=== PATIENT | male | born 1950 | race Hispanic/Latino ===

== ENCOUNTER 2016-08-29 20:21 | Emergency (ER) | payer MEDICARE ==
[~2016-08-29] VITALS: Ht 162.6 cm; Wt 68.0 kg
[~2016-08-29 20:21] MED LIST: BACTRIM DS1 TAB OR; DOXYCYC MONO100 M1 OR; METFORMIN500 MG PO; NO MEDS; PRAVASTATIN40 MG PO; ULTRAM50 M1 PO
[2016-08-29] MEDS ORDERED: LIPITOR10 M1 PO (20:31)
[2016-08-29] MEDS ORDERED: LISINOPRIL20 MG PO (20:31)
[2016-08-29] MEDS ORDERED: LEVEMIR1000 UNITS IJ (20:32)
[2016-08-29 21:40] LABS: HEMATOCRIT 48.6 % (39.0-50.0); IMMATURE GRANULOCYTES 1.7 % (0.0-1.0); MEAN CORPUSCULAR HGB 33.9 pG CALC (26.0-32.0); NEUT# 5.78 thou/uL (1.82-7.42); RED BLOOD COUNT 5.01 mill/uL (4.70-6.10); RED CELL DISTRI WIDTH 13.5 % (11.5-15.5)
[2016-08-29 21:58] LABS: ALBUMIN 4.1 g/dL (3.2-5.0); ALKALINE PHOSPHATASE 66 u/l (38-126); AMYLASE 196 u/l (30-110); ANION GAP 18 (6-22 (CALC)); BILIRUBIN, TOTAL 0.6 mg/dL (0.0-1.4); BUN 20 mg/dL (8-23); BUN/CREATININE RATIO 21 (12-20 (CALC)); CALCIUM 8.7 mg/dL (8.4-10.2); CARBON DIOXIDE 18 mmol/l (22-30); CHLORIDE 104 mmol/l (95-108); CREATININE 0.9 mg/dL (0.7-1.3); GFR > 60 ML/MIN (>=60 (CALC)); GFR FOR AFR.AMER. > 60 ML/MIN (>=60 (CALC)); GLUCOSE 158 mg/dL (82-115); LIPASE 448 u/l (23-300); POTASSIUM 4.4 mmol/l (3.5-5.1); SGOT/AST 38 u/l (19-48); SGPT/ALT 40 u/l (11-66); SODIUM 136 mmol/l (137-146); TOTAL PROTEIN 6.5 g/dL (6.3-8.2)
[2016-08-30 00:10] VITALS: BP 127/68
--- NOTE | 2016-09-04 08:12 | NUR ---
PHARMACY MEDICATION FOLLOW-UP Patient was seen in ED on 08/30/16 Cultures were reviewed from: Blood Patient was discharged with Rx for:[facility] C&S report came back with No Growth PLAN: C&S report called to physician Physician that was contacted: Contact #: Recommended: No Change Per Physician; Called the patient to Comment: DIVERTICULITIS
== END 2016-08-30 00:10 | disposition short-term general hospital (02) ==
LOC: ED 20:21
PROVIDERS: Emergency Medicine
DX: K57.20 Diverticulitis of large intestine with perforation and abscess without bleeding (principal); R10.32 Left lower quadrant pain; R10.31 Right lower quadrant pain; F17.210 Nicotine dependence, cigarettes, uncomplicated; I10 Essential (primary) hypertension

== ENCOUNTER 2017-03-04 18:49 | Observation (INO) | payer MEDICARE ==
[~2017-03-04] VITALS: Ht 162.6 cm; Wt 72.0 kg
[~2017-03-04 18:49] MED LIST changes: +LEVEMIR FL100 UNIT/M SC; +LEVEMIR1000 UNITS IJ; +LIPITOR10 M1 PO; +LISINOPRIL20 MG PO
[2017-03-04] MEDS ORDERED: PROAIR RES108 MCG/AC IN (19:39)
[2017-03-04] MEDS ORDERED: ANORO ELLIPTA 61 AER IN (19:40)
[2017-03-04 20:07] LABS: HEMOGLOBIN 15.2 g/dl (14.0-18.0); IMMATURE GRANULOCYTES 0.6 % (0.0-1.0); MEAN CELL VOLUME 86.1 fL CALC (80.0-100.0); MEAN CORPUSCULAR HGB 31.9 pG CALC (26.0-32.0); MEAN CORPUSCULAR HGB CONC 37.1 g/L CALC (32.0-36.0); NEUT# 6.35 thou/uL (1.82-7.42); RED BLOOD COUNT 4.76 mill/uL (4.70-6.10); RED CELL DISTRI WIDTH 12.4 % (11.5-15.5)
[2017-03-04 20:12] LABS: URINE BILIRUBIN - DIPSTICK NEGATIVE (NEGATIVE); URINE BLOOD DIPSTICK TRACE-INTACT (NEGATIVE); URINE CLARITY CLEAR; URINE COLOR YELLOW; URINE GLUCOSE - DIPSTICK >=1000 mg/dL (NEGATIVE); URINE KETONE NEGATIVE (NEGATIVE); URINE LEUK ESTERASE NEGATIVE (NEGATIVE); URINE NITRITE - DIPSTICK NEGATIVE (Negative); URINE PROTEIN - DIPSTICK NEGATIVE (NEG-TRACE); URINE UROBILINOGEN - DIPSTICK 0.2 E.U./dL (0.2)
[2017-03-04 20:15] LABS: ALBUMIN 4.4 g/dL (3.2-5.0); ALKALINE PHOSPHATASE 113 u/l (38-126); ANION GAP 18 (6-22 (CALC)); BILIRUBIN, TOTAL 1.2 mg/dL (0.0-1.4); BUN 21 mg/dL (8-23); BUN/CREATININE RATIO 16 (12-20 (CALC)); CALCIUM 9.2 mg/dL (8.4-10.2); CARBON DIOXIDE 20 mmol/l (22-30); CHLORIDE 95 mmol/l (95-108); CREATININE 1.3 mg/dL (0.7-1.3); GFR 55 ML/MIN (>=60 (CALC)); GFR FOR AFR.AMER. > 60 ML/MIN (>=60 (CALC)); POTASSIUM 4.9 mmol/l (3.5-5.1); SGOT/AST 31 u/l (19-48); SGPT/ALT 62 u/l (11-66); SODIUM 128 mmol/l (137-146); TOTAL PROTEIN 7.1 g/dL (6.3-8.2)
[2017-03-04 20:27] LABS: MYOGLOBIN 103 ng/mL (0 - 121)
[2017-03-04 20:30] LABS: GLUCOSE 660 mg/dL (82-115)
[2017-03-04 22:00] VITALS: BP 136/73
[2017-03-05 04:22] VITALS: BP 118/66
[2017-03-05 08:35] VITALS: BP 155/56
[2017-03-05 09:19] VITALS: BP 157/62
[2017-03-05] MEDS ORDERED: GLUCOTROL EXTE2.5 M1 PO (11:57)
[2017-03-05 13:12] LABS: BUN 16 mg/dL (8-23); BUN/CREATININE RATIO 19 (12-20 (CALC)); CALCIUM 8.9 mg/dL (8.4-10.2); CARBON DIOXIDE 22 mmol/l (22-30); CREATININE 0.9 mg/dL (0.7-1.3); GFR > 60 ML/MIN (>=60 (CALC)); GFR FOR AFR.AMER. > 60 ML/MIN (>=60 (CALC)); GLUCOSE 255 mg/dL (82-115); POTASSIUM 4.2 mmol/l (3.5-5.1); SODIUM 137 mmol/l (137-146)
[2017-03-05 13:33] LABS: ANION GAP 12 (6-22 (CALC)); CHLORIDE 107 mmol/l (95-108)
== END 2017-03-05 13:05 | disposition home or self-care (01) ==
LOC: ED 18:49 → ED-I 20:00 → ED 20:59 → MS2 21:00
PROVIDERS: Emergency Medicine; ADMIT Internal Medicine; ATTEND Internal Medicine
DX: E11.65 Type 2 diabetes mellitus with hyperglycemia (principal); I10 Essential (primary) hypertension; E78.5 Hyperlipidemia, unspecified; Z79.4 Long term (current) use of insulin; Z87.891 Personal history of nicotine dependence

== ENCOUNTER 2017-04-06 06:47 | Day surgery (SDC) | payer MEDICARE ==
[~2017-04-06] VITALS: Ht 162.6 cm; Wt 72.6 kg
[~2017-04-06 06:47] MED LIST changes: +ANORO ELLIPTA 61 AER IN; +GLUCOTROL EXTE2.5 M1 PO; +PROAIR RES108 MCG/AC IN
[2017-04-06 10:54] VITALS: BP 126/59
== END 2017-04-06 10:25 | disposition home or self-care (01) ==
LOC: ENDO 06:47
PROVIDERS: ATTEND Surgery
PROC: 0DJD8ZZ Inspection of Lower Intestinal Tract, Via Natural or Artificial Opening Endoscopic (ICD-10-PCS; principal; 2017-04-06)
PROC: 0DJD8ZZ Inspection of Lower Intestinal Tract, Via Natural or Artificial Opening Endoscopic (ICD-10-PCS; 2017-04-06)
DX: K57.30 Diverticulosis of large intestine without perforation or abscess without bleeding (principal); K62.89 Other specified diseases of anus and rectum; Z93.3 Colostomy status

== ENCOUNTER 2018-07-14 09:15 | Emergency (ER) | payer MEDICARE ==
[~2018-07-14] VITALS: Ht 162.6 cm; Wt 65.0 kg
[2018-07-14 10:40] LABS: HEMATOCRIT 42.7 % (39.0-50.0); HEMOGLOBIN 15.1 g/dl (14.0-18.0); IMMATURE GRANULOCYTES 0.3 % (0.0-5.0); MEAN CORPUSCULAR HGB 32.2 pG CALC (26.0-32.0); MEAN CORPUSCULAR HGB CONC 35.4 g/L CALC (32.0-36.0); NEUT# 3.62 thou/uL (1.82-7.42); RED BLOOD COUNT 4.69 mill/uL (4.70-6.10); RED CELL DISTRI WIDTH 12.7 % (11.5-15.5)
[2018-07-14 10:48] LABS: ALKALINE PHOSPHATASE 63 u/l (38-126); ANION GAP 13 (6-22 (CALC)); BILIRUBIN, TOTAL 0.7 mg/dL (0.0-1.4); BUN 21 mg/dL (8-23); BUN/CREATININE RATIO 25 (12-20 (CALC)); CARBON DIOXIDE 23 mmol/l (22-30); CHLORIDE 103 mmol/l (95-108); CREATININE 0.8 mg/dL (0.7-1.3); GFR > 60 ML/MIN (>=60 (CALC)); GFR FOR AFR.AMER. > 60 ML/MIN (>=60 (CALC)); SGOT/AST 38 u/l (19-48); SODIUM 135 mmol/l (137-146); TOTAL PROTEIN 6.3 g/dL (6.3-8.2)
[2018-07-14 10:59] LABS: MYOGLOBIN 180 ng/mL (0 - 121)
[2018-07-14] MEDS ORDERED: CEPHALEXIN500 M1 PO (11:16)
[2018-07-14] MEDS ORDERED: ROBITUSSIN AC10 ML PO (11:16)
[2018-07-14 11:19] VITALS: BP 122/58
== END 2018-07-14 11:28 | disposition home or self-care (01) ==
LOC: ED 09:15
PROVIDERS: Emergency Medicine
DX: R07.89 Other chest pain (principal); J06.9 Acute upper respiratory infection, unspecified; E11.9 Type 2 diabetes mellitus without complications; E78.5 Hyperlipidemia, unspecified; I10 Essential (primary) hypertension

== ENCOUNTER 2020-08-14 16:48 | Inpatient (IN) | payer MEDICARE ==
[~2020-08-14] VITALS: Ht 162.6 cm; Wt 77.0 kg
[~2020-08-14 16:48] MED LIST changes: +CEPHALEXIN500 M1 PO; +ROBITUSSIN AC10 ML PO
--- NOTE | 2020-08-14 17:12 | NUR ---
PT TO ROOM W/STEADY GAIT.
--- NOTE | 2020-08-14 17:18 | NUR ---
RECIEVED FOR CARE,POC DISCUSSED. CALL TAVERAS IN REACH.
--- NOTE | 2020-08-14 18:00 | NUR ---
CLEAN ABDOMINAL PAD DRESSING TO COVER WOUND ON LEFT BUTTOCKS. PATIENT TOLERATE WELL.
[2020-08-14 18:01] LABS: HEMATOCRIT 48.5 % (39.0-50.0); HEMOGLOBIN 17.2 g/dl (14.0-18.0); IMMATURE GRANULOCYTES 0.5 % (0.0-5.0); MEAN CELL VOLUME 91.9 fL CALC (80.0-100.0); MEAN CORPUSCULAR HGB 32.6 pG CALC (26.0-32.0); MEAN CORPUSCULAR HGB CONC 35.5 g/dL CAL (32.0-36.0); NEUT# 5.28 thou/uL (1.82-7.42); RED BLOOD COUNT 5.28 mill/uL (4.70-6.10); RED CELL DISTRI WIDTH 12.2 % (11.5-15.5)
[2020-08-14] MEDS ORDERED: TRESIBA FL100 UNIT/M SC (18:13)
[2020-08-14 18:18] LABS: ALBUMIN 4.4 g/dL (3.2-5.0); ALKALINE PHOSPHATASE 87 u/l (38-126); ANION GAP 13 (6-22 (CALC)); BILIRUBIN, TOTAL 1.1 mg/dL (0.0-1.4); BUN 24 mg/dL (8-23); BUN/CREATININE RATIO 27 (12-20 (CALC)); CARBON DIOXIDE 24 mmol/l (22-30); CHLORIDE 99 mmol/l (95-108); CREATININE 0.9 mg/dL (0.7-1.3); GFR > 60 ML/MIN (>=60 (CALC)); GFR FOR AFR.AMER. > 60 ML/MIN (>=60 (CALC)); POTASSIUM 4.9 mmol/l (3.5-5.1); SGOT/AST 46 u/l (19-48); TOTAL PROTEIN 7.1 g/dL (6.3-8.2)
[2020-08-14 18:21] LABS: SODIUM 131 mmol/l (137-146)
--- NOTE | 2020-08-14 19:06 | NUR ---
IN ROOM INTRODUCED SELF TO PT. IVD FLUIDS AND ABT. INFUSING WELL, NO REDNESS OR EDEMA NOTED.
--- NOTE | 2020-08-14 19:33 | NUR ---
Admission Note Report Given to: YNES FRAZIER Transported by: Wheelchair X Stretcher Transported with: X Nurse Transporter X Patent IV O2 Typewriter Operator Automatic Location: ICU X MS2
--- NOTE | 2020-08-14 19:34 | NUR ---
TAKEN TO MS FLOOR VIA STRETCHER. NO C/O.
--- NOTE | 2020-08-14 19:45 | NUR ---
PT RECEIVED FROM ED TO ROOM 278. ARRIVES VIA STRETCHER ACCOMPANIED BY RN. PT AMBULATORY TO BED. GAIT UNSTEADY. PT DENIES PAIN AT THIS TIME. ORIENTED TO UNIT, ROOM, CALL TAVERAS, LIGHTS, TV. ICE WATER PROVIDED. CALL TAVERAS WITHIN REACH. AGREES TO CALL PRN.
--- NOTE | 2020-08-14 20:00 | NUR ---
PHYSICAL ASSESMENT COMPLETE. PT CURRENTLY DENIES PAIN OR DISCOMFORT. SCHEDULED MEDICATIONS AND PRN MEDICATION ADMINISTERED, SEE E-MAR. PT DENIES ANY NEEDS AT THIS TIME. PLAN OF CARE REVIEWED, PT DENIES QUESTIONS, VERBALIZES UNDERSTANDING. WOUND/ABSCESS TO LEFT BUTTOCKS. INSPECTED AND PICTURE TAKE AND PLACED IN PTS CHART. ITEMS WITHIN REACH, BED LOCKED IN LOW POSITION W/ BEDRAILS UP X2. CALL TAVERAS WITHIN REACH, AGREES TO CALL PRN.
[2020-08-14 20:02] VITALS: BP 157/82
[2020-08-15] VITALS (11 sets, daily range): BP systolic 124–156; BP diastolic 58–82
--- NOTE | 2020-08-15 00:07 | NUR ---
PT LAYING IN BED WITH EYES CLOSED, APPEARS TO BE SLEEPING, APPEARS COMFORTABLE AND IN NO DISTRESS. RESPIRATIONS REGULAR AND UNLABORED. ITEMS REMAIN WITHIN REACH, CALL TAVERAS REMAINS WITHIN REACH. BED REMAINS LOCKED AND IN LOW POSITION WITH BEDRAILS UP X2. WILL CONTINUE TO MONITOR.
--- NOTE | 2020-08-15 04:13 | NUR ---
PT RESTING IN BED, NO SIGNS OF DISTRESS NOTED, RESP EVEN AND UNLABORED. PT VOICES NO NEEDS OR COMPLAINTS AT THIS TIME. CALL LIGHT IN REACH, CONTINUE TO MONITOR.
[2020-08-15 05:34] LABS: HEMATOCRIT 48.2 % (39.0-50.0); HEMOGLOBIN 16.7 g/dl (14.0-18.0); MEAN CELL VOLUME 92.3 fL CALC (80.0-100.0); MEAN CORPUSCULAR HGB CONC 34.6 g/dL CAL (32.0-36.0); RED BLOOD COUNT 5.22 mill/uL (4.70-6.10); RED CELL DISTRI WIDTH 12.2 % (11.5-15.5)
[2020-08-15 05:59] LABS: BUN 16 mg/dL (8-23); BUN/CREATININE RATIO 21 (12-20 (CALC)); CARBON DIOXIDE 24 mmol/l (22-30); CHLORIDE 106 mmol/l (95-108); CREATININE 0.8 mg/dL (0.7-1.3); GFR > 60 ML/MIN (>=60 (CALC)); GFR FOR AFR.AMER. > 60 ML/MIN (>=60 (CALC)); MAGNESIUM 1.8 mg/dL (1.6-2.3)
[2020-08-15 06:00] LABS: ANION GAP 12 (6-22 (CALC)); POTASSIUM 3.7 mmol/l (3.5-5.1); SODIUM 138 mmol/l (137-146)
--- NOTE | 2020-08-15 08:10 | NUR ---
ASSESSMENT IS COMPLETED: IV SITE IS FREE FROM REDNESS OR EDEMA.HR IS REG,PULSES ARE STRONG X4, ABD IS SOFT WITH ACTIVE BS. BREATH SOUDNS ARE CLEAR,BILATERALLY, NO C/O SOB. DRESSING ON LEFT BUTTOCK IS CDI. WAITING TO GO TO OR.
--- NOTE | 2020-08-15 10:03 | NUR ---
PT TAKEN TO OR VIA STRETCHER WITH STAFF.
--- NOTE | 2020-08-15 11:57 | NUR ---
S: DELANEY BRIONES JR is a 70 M who presents with cellulitis. He has a history of insulin dependent diabetes, hypertension, hyperlipidemia, diverticular disease, and COPD. All medications in patient's chart were reviewed. O: VS: BP 145/77 mmHg, P 74 bpm, RR 14 breaths per min, T 97.7 F W 77 kg, HT 64 in, Scr= 1 mg/dL, CrCl= 74.7 ml/min A: Blood culture is pending. Preliminary wound culture on 08/14/20 shows growth of Staphylococcus aureus. Wound culture on 08/15/20 is pending. P: Patient is on ceftriaxone 1 g IV Q24H. Vancomycin ordered for pharmacy to dose. Start Vancomycin 1 g IV Q12H. Vancomycin trough is drawn before the 4th dose on 08/16/20 @ 0530. Vancomycin goal trough is between 10-15 mcg/ml. Pharmacy will follow and or advise on antibiotics use as needed.
--- NOTE | 2020-08-15 12:37 | NUR ---
PT RETURNED FROM OR VIA STRETCHER WITH STAFF. IV SITE IS FREE FROM REDNESS OR EDEMA. DRESSING ON L BUTTOCK IS CDI. PT ABLE TO AMBULATE TO THE BED WITH 1 PERSON ASSIST. CONTINUE TO OBSERVE AND MONITOR.
--- NOTE | 2020-08-15 13:31 | NUR ---
spoke with pt's inquired how deep in inches. 1 1/2cm is equal to 1/2 inch. explained about the packing and covering . inquired if he can go home tomorrow. explained the medical Dr. Holman will be here to see him tomorrow. verbalized understanding.
--- NOTE | 2020-08-15 16:30 | NUR ---
PT IS RELAXING IN BED WITH NO DISTRESS NOTED. IV SITE IS FREE FROMR EDNESS OR EDEMA.
--- NOTE | 2020-08-15 19:45 | NUR ---
PHYSICAL ASSESMENT COMPLETE. PT CURRENTLY DENIES PAIN OR DISCOMFORT. SCHEDULED MEDICATIONS AND PRN MEDICATION ADMINISTERED, SEE E-MAR. PT DENIES ANY NEEDS AT THIS TIME. PLAN OF CARE REVIEWED, PT DENIES QUESTIONS, VERBALIZES UNDERSTANDING. ITEMS WITHIN REACH, BED LOCKED IN LOW POSITION W/ BEDRAILS UP X2. CALL TAVERAS WITHIN REACH, AGREES TO CALL PRN.
--- NOTE | 2020-08-15 20:30 | NUR ---
CHANGED PATIENTS DRESSING. REMOVED AND DISCARDED OLD DERESSING. CLEAND WOUND WITH SODIUM CHLORIDE AND PATTED DRY. PLACED WET TO DRY GAUZE OF WOUND.PLACED ABDOMINAL BINDER ON WOUND. COVERED WITH PAPER TAPE.TIMED DATED AND SIGNED. PT TOLERATED PROCEDURE WELL.
[2020-08-16 03:50] VITALS: BP 152/78
[2020-08-16 05:55] LABS: HEMATOCRIT 48.8 % (39.0-50.0); HEMOGLOBIN 16.6 g/dl (14.0-18.0); MEAN CELL VOLUME 93.8 fL CALC (80.0-100.0); MEAN CORPUSCULAR HGB 31.9 pG CALC (26.0-32.0); RED BLOOD COUNT 5.2 mill/uL (4.70-6.10); RED CELL DISTRI WIDTH 12.3 % (11.5-15.5)
[2020-08-16 06:15] LABS: ANION GAP 9 (6-22 (CALC)); BUN 17 mg/dL (8-23); BUN/CREATININE RATIO 19 (12-20 (CALC)); CARBON DIOXIDE 24 mmol/l (22-30); CHLORIDE 109 mmol/l (95-108); CREATININE 0.9 mg/dL (0.7-1.3); GFR > 60 ML/MIN (>=60 (CALC)); GFR FOR AFR.AMER. > 60 ML/MIN (>=60 (CALC)); POTASSIUM 4.1 mmol/l (3.5-5.1); SODIUM 138 mmol/l (137-146)
[2020-08-16 08:15] VITALS: BP 153/58
--- NOTE | 2020-08-16 08:15 | NUR ---
ASSESSMENT IS COMPLETED: IV SITE IS FREE FROM REDNESS OR EDEMA. HR IS REG,PULSES ARE STRONG X4, ABD IS SOFT WITH ACTIVE BS. BREATH SOUNDS ARE CLEAR,BILATERALLY, DRESSING ON L BUTTOCLK IS CDI. CONTINUE TO OBSERVE AND MONITOR.
--- NOTE | 2020-08-16 09:21 | NUR ---
PRELIM BLOOD CX RESULTS SHOW GRAM POSITIVE COCCI IN ALL 4 BOTTLES. 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 PT IS RECEIVING VANCO AND ROCEPHIN. RESULTS REPORTED TO DR MORIN, WILL F/U WITH FINAL.
--- NOTE | 2020-08-16 12:00 | NUR ---
PT IS RELAXING IN BED WITH NO DISTRESS NOTED. IV SITE IS FREE FROM REDNESS OR EDEMA. CONTINUE TO OBSERVE AND MONITOR.
--- NOTE | 2020-08-16 13:33 | NUR ---
PT PRESENTS WITH CELLULITIS, VANCOMYCIN ORDERED FOR PHARMACY TO DOSE. THIS AM @ 0530, VANCO TROUGH WAS 9 MCG/ML, GOAL TROUGH 10-15 MCG/ML. RENAL FUNCTION REMAINS UNCHANGED AT 74.7 ML/MIN USING TRUE BODY WEIGHT. PRELIM BLOOD CX SHOWS GRAM POSITIVE COCCI IN ALL 4 BOTTLES, FINAL WOUND CX SHOWS MRSA WITH SENSITIVITY TO VANCOMYCIN. PT IS ALSO RECEIVING ROCEPHIN 1G IV DAILY. INCREASE VANCOMYCIN DOSE TO 1250MG IV BID, WILL CHECK TROUGH 30 MIN PRIOR TO 4TH DOSE ON 08/18 @ 0430. PHARMACY WILL CONTINUE TO FOLLOW.
--- NOTE | 2020-08-16 14:06 | NUR ---
CHANGED THE DRESSING ON LEFT BUTTOCK. HAS SOME BLOODY DRAINAGE NOTED. NO ODOR. PT TOLERATED THE DRESSING CHANGE WELL. REDNESS NOTED AROUND THE SURGERY SITE. NO TUNNELING NOTED. REDRESSED WITH WET 4X4 AND COVERED WITH A DRY 4X4 AND ABD PAD. USING CLEAN TECHNIQUE.
[2020-08-16 15:00] VITALS: BP 154/86
--- NOTE | 2020-08-16 16:00 | NUR ---
PT IS RELAXING IN BED WITH NO DISTRESS NOTED. IV SITE IS FREE FROM REDNESS OR EDEMA.
[2020-08-16 19:11] VITALS: BP 178/85
--- NOTE | 2020-08-16 21:35 | NUR ---
PT IN ROOM AMBULATING INDEPENDENTLY. DENIES PAIN, NO COMPLAINTS VOIED. DRESSING TO LEFT BUTTOCK CDI. WILL BE CHANGING DRESSING THIS SHIFT. PRODUCTIVE COUGH NOTED WITH CLEAR/WHITE SPUTUM. LUNGS DIMINSHED THROUGHOUT. WILL CONTINUE TO MONITOR.
--- NOTE | 2020-08-17 01:08 | NUR ---
PT RESTING WELL IN BED AT THIS TIME. DRESSING CHNGED PER ORDER, CLEANSED WITH NS, PAT DRY, PACKED WITH SALINE WET GUAZE, COVERED WITH DRY GUAZE AND ABD, SECURED WITH TAPE. BLOODY DRAINAGE NOTED ON REMOVED DRESSING, WOUND EDGES INTACT, WOUND BED RED. NO S/S OF INFECTION NOTED AT THIS TIME. PT IS HOWEVER + FOR MRSA IN WOUND. PT DID EXPRESS PAIN WITH DRESSING CHANGE, WILL ADVISE IN REPORT TO MEDICATE PT PRIOR TO DRESSING CHANGE FOR PT COMFORT. WILL CONTINUE TO MONITOR PT.
--- NOTE | 2020-08-17 04:15 | NUR ---
PT RESTING IN BED WITH EYES CLOSED. NO S/S OF DISTRESS NOTED. BREATHING EVEN AND UNLABORED. NO COMPLAINTS VOICED AT THIS TIME. WILL MONITOR.
[2020-08-17 05:28] VITALS: BP 160/75
[2020-08-17 05:47] LABS: HEMATOCRIT 50.8 % (39.0-50.0); IMMATURE GRANULOCYTES 0.4 % (0.0-5.0); MEAN CELL VOLUME 94.2 fL CALC (80.0-100.0); MEAN CORPUSCULAR HGB 31.5 pG CALC (26.0-32.0); MEAN CORPUSCULAR HGB CONC 33.5 g/dL CAL (32.0-36.0); NEUT# 4.25 thou/uL (1.82-7.42); RED BLOOD COUNT 5.39 mill/uL (4.70-6.10); RED CELL DISTRI WIDTH 12.3 % (11.5-15.5)
[2020-08-17 06:55] LABS: ANION GAP 12 (6-22 (CALC)); BILIRUBIN, TOTAL 0.7 mg/dL (0.0-1.4); BUN 18 mg/dL (8-23); BUN/CREATININE RATIO 21 (12-20 (CALC)); CARBON DIOXIDE 22 mmol/l (22-30); CHLORIDE 107 mmol/l (95-108); CREATININE 0.9 mg/dL (0.7-1.3); GFR > 60 ML/MIN (>=60 (CALC)); GFR FOR AFR.AMER. > 60 ML/MIN (>=60 (CALC)); POTASSIUM 3.9 mmol/l (3.5-5.1); SGOT/AST 38 u/l (19-48); SODIUM 136 mmol/l (137-146); TOTAL PROTEIN 5.7 g/dL (6.3-8.2)
[2020-08-17 06:59] LABS: ALBUMIN 3.4 g/dL (3.2-5.0); ALKALINE PHOSPHATASE 43 u/l (38-126)
[2020-08-17 07:50] VITALS: BP 196/80
--- NOTE | 2020-08-17 07:50 | NUR ---
ASSESSMENT IS COMPLETD: IV SITE IS FREE FROM REDNESS OR EDEMA. HR IS REG,PULSES ARE STRONG X4, ABD IS SOFT WITH ACTIVE BS. BREATH SOUNDS ARE CLEAR,BILATERALLY, DRESSING ON LEFT BUTTOCK IS CDI.
[2020-08-17 09:00] VITALS: BP 162/78
--- NOTE | 2020-08-17 12:00 | NUR ---
PT HAS BEEN RELAXING IN THE BED WITH NO DISTRESS NOTED. IV SITE IS FREE FROM REDNESS OR EDEMA.
[2020-08-17 15:20] VITALS: BP 131/66
--- NOTE | 2020-08-17 15:58 | NUR ---
DRESSING REMOVED FROM LEFT BUTTOCK. WITH SOME BLOODY DRAINAGE NOTED. REPLCED WITH 4X4 WET TO DRY DRESSING AND COVERED WITH ABD PAD. SECURED WITH TAPE. PT TOLERATED WELL. USING CLEAN TECHNIQUE
--- NOTE | 2020-08-17 16:00 | NUR ---
PT HAS BEEN RESTING IN BED WITH NO DISTRESS NOTED. IV SITE IS FREE FROM REDNESS OR EDEMA.
--- NOTE | 2020-08-17 16:24 | NUR ---
SPOKE WITH FAMILY RE: THE BLOOD AND WOUND CULTURE REPORTS. AND THE PLAN OF INFECTIOUS DISEASE CONSULT WITH ECHO CARDIOGRAM AND THE DETERMINATION OF WHEN DISCHARGE AND IF HE WILL NEED IV ABT'S.
[2020-08-17 19:00] VITALS: BP 162/86
--- NOTE | 2020-08-17 20:45 | NUR ---
PT ASSESSMENT COMPLETED AND MEDICATIONS ADMINISTERED AT THIS TIME. ABD HAS VERY LARGE HERNIATED AREA FROM PREVIOUS SURGERY REPORTED BY PT, ACTIVE BOWEL SOUNDS. URINAL EMPTIED OF 200CC OF CLEAR YELLOW URINE. CALL LIGHT AT SIDE AND PT ENCOURAGED TO CALL NEEDS ARISE. SNACK PROVIDED PER REQUEST AND NEW HANDWIPES PROVIDED PER REQUEST.
--- NOTE | 2020-08-18 00:55 | NUR ---
PT CALLED TO ASK FOR HIS URINAL TO BE EMPTIED. 800CC OF CLEAR YELLOW URINE EMPTIED AT THIS TIME.
[2020-08-18 04:00] VITALS: BP 178/82
--- NOTE | 2020-08-18 04:21 | NUR ---
DRESSING CHANGE TO LEFT BUTTOCK, PICTURES UPDATED IN THE CHART. PT TOLERATED WET TO DRY DRESSING PER ORDERS WELL. DENIES ANY OTHER NEEDS AT THIS TIME.
--- NOTE | 2020-08-18 04:36 | NUR ---
PT IS UP BRUSHING HIS TEETH, NURSING SERVICE DIRECTOR IN WITH HIM ASISTING AND CHANGING BEDDING. WILL RETURN WITH BP MEDICATION FOR ELEVATED BP.
[2020-08-18 04:54] LABS: HEMATOCRIT 54.7 % (39.0-50.0); HEMOGLOBIN 18.6 g/dl (14.0-18.0); IMMATURE GRANULOCYTES 0.4 % (0.0-5.0); MEAN CELL VOLUME 92.9 fL CALC (80.0-100.0); MEAN CORPUSCULAR HGB 31.6 pG CALC (26.0-32.0); NEUT# 4.8 thou/uL (1.82-7.42); RED BLOOD COUNT 5.89 mill/uL (4.70-6.10); RED CELL DISTRI WIDTH 12.2 % (11.5-15.5)
[2020-08-18 05:10] LABS: ALKALINE PHOSPHATASE 60 u/l (38-126); ANION GAP 16 (6-22 (CALC)); BILIRUBIN, TOTAL 0.8 mg/dL (0.0-1.4); BUN 13 mg/dL (8-23); BUN/CREATININE RATIO 18 (12-20 (CALC)); CARBON DIOXIDE 21 mmol/l (22-30); CHLORIDE 105 mmol/l (95-108); CREATININE 0.7 mg/dL (0.7-1.3); GFR > 60 ML/MIN (>=60 (CALC)); GFR FOR AFR.AMER. > 60 ML/MIN (>=60 (CALC)); POTASSIUM 4.1 mmol/l (3.5-5.1); SGOT/AST 58 u/l (19-48); SODIUM 138 mmol/l (137-146)
[2020-08-18 05:16] LABS: ALBUMIN 4.6 g/dL (3.2-5.0); TOTAL PROTEIN 7.7 g/dL (6.3-8.2)
--- NOTE | 2020-08-18 05:31 | NUR ---
VANCO TROUGH LAB RESULTED 12/VANCO IV THERAPY ADMINISTERED AT THIS TIME. PT IS AWAKE WATCHING NEWS.
[2020-08-18 06:07] VITALS: BP 158/79
--- NOTE | 2020-08-18 07:05 | NUR ---
DR. POLK AT BEDSIDE.
--- NOTE | 2020-08-18 07:10 | NUR ---
REPORT RECEIVED FROM KARIN SANDOVAL. PT SITTING UP IN BED HIGH FOWLERS; ALERT AND ORIENTED X3. PT DENIES PAIN; RESPIRATIONS EVEN AND UNLABORED ON ROOM AIR. IV FLUIDS INFUSING INTO 20G IN RAC; IV SITE IS LEAKING AND BLOODY; IV FLUIDS STOPPED AT THIS TIME AND SITE REMOVED; CATHETER TIP INTACT; PT TOLERATED WELL. POC REVIWED; PT ENCOURAGED TO VERBALIZE CONCERNS; C/O INCREASED STRESS RELATED TO HIS HEALTH. SAFETY MEASURES IN PLACE. CALL LIGHT WITHIN REACH.
[2020-08-18 08:00] VITALS: BP 170/84
--- NOTE | 2020-08-18 08:44 | NUR ---
S: DELANEY BRIONES JR is a 70 M who presents with cellulitis and bacteremia. He has a history of insulin dependent diabetes mellitus, hypertension, hyperlipidemia, diverticular disease and COPD. All medications in patient's chart were reviewed. O: VS: BP 170/84 mmHg, P 101 beats per minute, RR 14 breathes per minute, T 97.0 F Vancomycin trough 08/18/20 @ 0430 was 12 mcg/mL W 77 kg, HT 64 in, Scr= 1 mg/dL, CrCl= 74.9 ml/min A: Final blood culture result from 08/14/20 shows MRSA sensitive to vancomycin. Blood culture results from 08/17/20 are pending. Wound culture results from 08/14/20 (left buttock) and 08/15/20 (abscess left) show MRSA sensitive to vancomycin. P: Vancomycin ordered for pharmacy to dose. Increase Vancomycin dose to 1500mg IV Q12H. Vancomycin trough is drawn before the 4th dose on 08/20/20 @ 0430. Vancomycin goal trough is between 15-20 mcg/ml. Pharmacy will follow and or advise on antibiotics use as needed.
--- NOTE | 2020-08-18 11:04 | NUR ---
DR. MORIN AND ZULEIKA LAMA AT BEDSIDE FOR EVAL.
[2020-08-18 14:30] VITALS: BP 118/67
--- NOTE | 2020-08-18 15:09 | NUR ---
DR. CAMPBELL AT [facility]3] BEDSIDE FOR INFECTIOUS DISEASE CONSULT.
--- NOTE | 2020-08-18 16:00 | NUR ---
WET TO DRY DRESSING CHANGE COMPLETED TO WOUND ON LEFT BUTTOCK; PT TOLERATED WELL. IV ATTEMPT X 2 UNSUCCESSFUL; PT DOES NOT TOLERATE IV ATTEMPTS WELL; FACIAL GRIMACING AND YELLING OUT DUE TO PAIN.
--- NOTE | 2020-08-18 17:15 | NUR ---
#22G IV STARTED TO RIGHT HAND BY RAMON SANCHEZ AND JULISA NOW INFUSING WITHOUT DIFFICULTY.
[2020-08-18 19:00] VITALS: BP 149/74
[2020-08-19 04:00] VITALS: BP 145/74
[2020-08-19 06:18] LABS: HEMATOCRIT 52.6 % (39.0-50.0); HEMOGLOBIN 17.7 g/dl (14.0-18.0); MEAN CELL VOLUME 93.6 fL CALC (80.0-100.0); MEAN CORPUSCULAR HGB 31.5 pG CALC (26.0-32.0); MEAN CORPUSCULAR HGB CONC 33.7 g/dL CAL (32.0-36.0); RED BLOOD COUNT 5.62 mill/uL (4.70-6.10); RED CELL DISTRI WIDTH 12.3 % (11.5-15.5)
[2020-08-19 06:35] LABS: ANION GAP 13 (6-22 (CALC)); BUN 16 mg/dL (8-23); BUN/CREATININE RATIO 18 (12-20 (CALC)); CARBON DIOXIDE 23 mmol/l (22-30); CHLORIDE 105 mmol/l (95-108); CREATININE 0.9 mg/dL (0.7-1.3); GFR > 60 ML/MIN (>=60 (CALC)); GFR FOR AFR.AMER. > 60 ML/MIN (>=60 (CALC)); MAGNESIUM 1.7 mg/dL (1.6-2.3); POTASSIUM 3.5 mmol/l (3.5-5.1); SODIUM 137 mmol/l (137-146)
--- NOTE | 2020-08-19 07:44 | NUR ---
PT RESTED WELL IN BED THROUGHOUT THE SHIFT. BREATHING EVEN AND UNLABORED. NO S/S OF DISTRESS NOTED. DRESSING CHANGED TO L BUTTOCK PER ORDER, CLEANSED WITH NS, PAT DRY, APPLY KRAEN MOISTENED GUAZE INTO WOUND BED, COVERED WITH A DRY 4X4, COVERED WITH TELFA, AND SECURED WITH SILK TAPE. PT TOLERATED WELL. SOME COMPLAINTS OF PAIN WITH DRESSING CHANGE BUT PT INDICATES THAT THE TYLENOL ORDERED IS SUFFCIANT FOR PAIN. WILL CONTINUE TO MONITOR.
--- NOTE | 2020-08-19 08:00 | NUR ---
PATIENT AWAKE AND SITTING BEDSIDE. NO INSULIN BG WAS 55
[2020-08-19] MEDS ORDERED: DALVANCE500 MG IV (13:34)
[2020-08-19 15:38] VITALS: BP 139/66
--- NOTE | 2020-08-19 16:00 | NUR ---
PATIENT WILL DC TOMORROW WHEN INSURANCE GIVES AUTH FOR THE ONE TIME DOSE OF ABX
--- NOTE | 2020-08-19 16:06 | NUR ---
WOUND CARE PERFORMED ON LEFT BUTTOCKS
--- NOTE | 2020-08-19 18:39 | NUR ---
PICC LINE INSERTED IN RIGHT UPPER ARM.
[2020-08-19 19:00] VITALS: BP 158/76
--- NOTE | 2020-08-19 23:16 | NUR ---
PT DOING WELL TODAY, VERY INDEPENDENT. IV FLUIDS CONTINUE TO RICHARD PICC @ 75ML/HR. NO COMPLAINTS VOICED AT THIS TIME. REPORTS SLIGHT PAIN IN HIS RICHARD, EDUCATED THAT THE NUMBNESS IS WEARING OFF AND IT MIGHT BE SORE FROM THE PICC BEING PLACED. PT VERBALIZED UNDERSTANDING TO INSTRUCTION GIVEN. NO S/S OF DISTRESS. BREATHING EVEN AND UNLABORED. WILL CONTINUE TO MONITOR.
--- NOTE | 2020-08-20 01:56 | NUR ---
PT DOING WELL AT THIS TIME. DRESSING CHANGE SCHEDULED FOR 399. NO COMPLAINTS VOICED AT THIS TIME. DENIES PAIN. WILL CONTINUE TO MONITOR.
--- NOTE | 2020-08-20 04:47 | NUR ---
PT SITTING UP IN BED WATCHING TV AT THIS TIME. BLOOD DRAWN VIA PIC LINE FOR VANCO TROUGH, PT TOLERATED WELL. DRESSING CHANGE COMPLETED, WOUND BED RED WITH SCANT AMOUNT OF GRANULATED TISSUE NOTED, SMALL BLOODY DRAINAGE NOTED, SOME UNDERMINING NOTED TO MOST PROXIMAL WOUND EDGE, WOUND EDGES INTACT, NO S/S OF MACERATION NOTED. CLEANSD WOUND WITH NS, PCKED WOUND WITH SALINE MOISTENED GUAZE, COVERED BY 4X4 AND TELFA, SECURED WITH SILK TAPE. P TOLERATED WELL. WILL CONTINUE TO MONITOR.
[2020-08-20 05:57] VITALS: BP 153/76
[2020-08-20 07:25] VITALS: BP 158/77
--- NOTE | 2020-08-20 07:25 | NUR ---
PATIENT ALERT AND ORIENTED AT THIS TIME. PATIENT DENIES ANY PAIN AT THIS TIME RN ASSESSEMENT DONE. DRESSING ON BUTTOCKS DRY AND INTACT. SIDERAILS ARE UP X 2 CALL LIGHT AND PERSONAL ITEMS WITHIN REACH.
--- NOTE | 2020-08-20 11:59 | NUR ---
PATIENT SITTING AT BEDSIDE DENIES ANY PAIN OR NEEDS AT THIS TIME. SIDERAILS ARE UP X2 CALL LIGHT AND PERSONAL ITEMS WITHIN REACH. PATIENT DENIES ANY PAIN.
[2020-08-20] MEDS ORDERED: [UNRECOGNIZED DRUG - OTHER] IV (12:31)
[2020-08-20 15:14] VITALS: BP 152/80
--- NOTE | 2020-08-20 16:16 | NUR ---
PATIENT RESTING IN BED AT THIS TIME STATED HE HAS NO NEEDS AND NO PAIN. BUTTOCKS DRESSING CHANGED AT THIS TIME. 4X4 WET GAUZE PLACED IN WOUND AND DRY DRESSING PLACED ON TOP WITH ABD PAD. SIDERAILS ARE UP CALL LIGHT IS WITHIN REACH.
--- NOTE | 2020-08-20 17:22 | NUR ---
PATIENTS IV FOUND TO BE DISLODGED AT THIS TIME. PATIENT STATED THAT HE IS REFUSING TO HAVE ANYMORE IV'S PLACED AT THIS TIME. PATIENT EDUCATED ON IMPORTANCE OF IV ANTIBIOTIC THEARPY AT THIS TIME PATIENT STATED "I DON'T CARE I AM NOT ALLOWING ANYBODY TO STICK ME AGAIN". PATIENT STATED "I DON'T CARE IF I I AM NOT GOING TO BE STUCK AGAIN PERIOID". THIS NURSE CONTACTED NANCY TO AT THIS TIME OF PATIENTS REFUSUAL OF IV AT THIS TIME.
== END 2020-08-20 20:00 | disposition home health service (06) | DRG 571 ==
LOC: ED 16:48 → MS2 18:40
PROVIDERS: Nurse Practitioner; Physician Assistant; ADMIT Internal Medicine; ATTEND Internal Medicine
PROC: 0JB90ZZ Excision of Buttock Subcutaneous Tissue and Fascia, Open Approach (ICD-10-PCS; principal; 2020-08-15)
PROC: 02HV33Z Insertion of Infusion Device into Superior Vena Cava, Percutaneous Approach (ICD-10-PCS; 2020-08-19)
PROC: B518ZZA Fluoroscopy of Superior Vena Cava, Guidance (ICD-10-PCS; 2020-08-19)
DX: L02.31 Cutaneous abscess of buttock (principal); R78.81 Bacteremia; L03.317 Cellulitis of buttock; E11.65 Type 2 diabetes mellitus with hyperglycemia; I10 Essential (primary) hypertension; J44.9 Chronic obstructive pulmonary disease, unspecified; E78.5 Hyperlipidemia, unspecified; B95.62 Methicillin resistant Staphylococcus aureus infection as the cause of diseases classified elsewhere; Z79.4 Long term (current) use of insulin; Z93.3 Colostomy status; Z87.891 Personal history of nicotine dependence; Z20.822 Contact with and (suspected) exposure to COVID-19
CPT/HCPCS: J0131; J1650; J3370; Q3014

== ENCOUNTER 2022-11-10 10:04 | Emergency (ER) | payer MEDICARE ==
[~2022-11-10] VITALS: Ht 162.6 cm; Wt 79.8 kg
[2022-11-10] VITALS (7 sets, daily range): BP systolic 124–150; BP diastolic 69–82
[~2022-11-10 10:04] MED LIST changes: +DALVANCE500 MG IV; +TRESIBA FL100 UNIT/M SC; +[UNRECOGNIZED DRUG - OTHER] IV
[2022-11-10 10:46] LABS: BASO% 0.4 % (0-3); EOS% 1.9 % (0-8); IMMATURE GRANULOCYTES 0.2 % (0.0-5.0); LYMPH% 18.5 % (15-41); MEAN CELL VOLUME 95.1 fL CALC (80.0-100.0); MEAN CORPUSCULAR HGB 32.4 pG CALC (26.0-32.0); MONO% 9.1 % (2-13); NEUT# 7.54 thou/uL (1.82-7.42); NEUT% 69.9 % (42-76); RED BLOOD COUNT 6.18 mill/uL (4.70-6.10); RED CELL DISTRI WIDTH 12.9 % (11.5-15.5)
[2022-11-10 10:47] LABS: HEMATOCRIT 58.8 % (39.0-50.0)
[2022-11-10 10:50] LABS: URINE BILIRUBIN - DIPSTICK NEGATIVE (NEGATIVE); URINE BLOOD DIPSTICK TRACE-INTACT (NEGATIVE); URINE COLOR YELLOW; URINE GLUCOSE - DIPSTICK >=1000 mg/dL (NEGATIVE); URINE KETONE NEGATIVE (NEGATIVE); URINE LEUK ESTERASE NEGATIVE (NEGATIVE); URINE PH 5.5 (4.5-8.0); URINE PROTEIN - DIPSTICK 100 mg/dL (NEG-TRACE); URINE SPECIFIC GRAVITY 1.025; URINE UROBILINOGEN - DIPSTICK 0.2 E.U./dL (0.2)
[2022-11-10 10:52] LABS: URINE NITRITE - DIPSTICK NEGATIVE (Negative)
[2022-11-10 10:59] LABS: URINE RBC 0-2 RBC/hpf (0-5)
[2022-11-10 11:05] LABS: ALBUMIN 4.7 g/dL (3.2-5.0); ALKALINE PHOSPHATASE 63 u/l (38-126); BILIRUBIN, TOTAL 0.7 mg/dL (0.2-1.3); BUN 25 mg/dL (8-23); BUN/CREATININE RATIO 23 (12-20 (CALC)); CARBON DIOXIDE 22 mmol/l (22-30); CHLORIDE 105 mmol/l (95-108); CREATININE 1.1 mg/dL (0.7-1.3); GFR FOR AFR.AMER. > 60 ML/MIN (>=60 (CALC)); GFR OTHER RACES > 60 ML/MIN (>=60 (CALC)); SGOT/AST 47 u/l (19-48); SODIUM 138 mmol/l (137-146); TOTAL PROTEIN 7.4 g/dL (6.3-8.2)
[2022-11-10 11:07] LABS: ANION GAP 16 (6-22 (CALC)); POTASSIUM 4.8 mmol/l (3.5-5.1)
[2022-11-10] MEDS ORDERED: CLEOCIN300 MG PO ×2 (11:57→13:38)
[2022-11-10] MEDS ORDERED: SIKLOS1000 MG PO ×2 (11:57→13:38)
== END 2022-11-10 13:52 | disposition home or self-care (01) ==
LOC: ED 10:04
PROVIDERS: Family Medicine
DX: D45 Polycythemia vera (principal); L02.31 Cutaneous abscess of buttock; L03.317 Cellulitis of buttock; I10 Essential (primary) hypertension; E11.9 Type 2 diabetes mellitus without complications; E78.5 Hyperlipidemia, unspecified; Z79.4 Long term (current) use of insulin